=== PATIENT | male | born 1995 | race Caucasian/White ===

== ENCOUNTER 2024-04-05 13:22 | Emergency (ER) | payer OTHER ==
[2024-04-05 14:21] LABS: Absolute Basophils 0.1 K/uL (0-0.5); Absolute Eosinophils 0.5 K/uL (0-0.5); Absolute Lymphocytes (CBC) 1.3 K/uL (0.7-4.9); Absolute Monocytes 0.4 K/uL (0.1-1.3); Absolute Neutrophil 2.8 K/uL (1.8-8.0); Basophils % 1.1 % (0-1.3); Eosinophils % 9.4 % (0-4.4); Hematocrit 43.8 % (39.6-49.0); MCH 30.4 pg (27.0-35.0); MCHC 34.3 g/dL (32.0-36.0); MCV 88.6 fL (80-100); MPV 8.1 fL (7.6-11.3); Monocytes % 7.4 % (3.3-12.3); Neutrophils % 56.1 % (41.7-73.7); Platelets 295 thou/uL (152-406); RBC Red Blood Cell Count 4.94 M/uL (4.33-5.43); Red Cell Distribution Width 13.3 % (12.1-15.2)
[2024-04-05 14:35] LABS: PT Prothrombin Time 11.6 SECONDS (9.4-12.5); PTT, Activated Partial Thromb 39.3 SECONDS (24.3-36.9); Protime INR 1.11
[2024-04-05 14:45] LABS: ALT/SGPT 17 U/L (16-61); AST/SGOT 11 U/L (15-37); Albumin 4.2 g/dL (3.4-5.0); Alkaline Phosphatase 71 U/L (45-117); Anion Gap 10.3 mEq/L (5.0-15.0); BUN Blood Urea Nitrogen 14 mg/dL (7-18); Bicarbonate 24 mEq/L (21-32); Bilirubin Direct 0.2 mg/dL (0-0.2); Bilirubin Indirect, Calculated 0.4 mg/dL (0.2-0.8); Bilirubin Total 0.6 mg/dL (0.2-1.0); Globulin 4.2 g/dL (2.3-3.5); Glomerular Filtration Rate 119 ml/min (=/>90); Glucose Level 86 mg/dL (74-106); Potassium 4.3 mEq/L (3.5-5.1); Protein, Total 8.4 g/dL (6.4-8.2); Sodium Level 137 mEq/L (136-145)
[2024-04-05 14:46] LABS: Specific Gravity < 1.005 (1.005-1.030); Urine Bilirubin NEGATIVE (Negative); Urine Blood Negative (Negative); Urine Clarity Clear (Clear); Urine Color Colorless (Yellow); Urine Glucose NEGATIVE (Negative); Urine Ketones NEGATIVE (Negative); Urine Microscopic Reflex YN NO UMIC; Urine Nitrite NEGATIVE (Negative); Urine Protein NEGATIVE (Negative); Urine Urobilinogen Normal (Normal); Urine pH 6.5 (5.0-7.0)
[2024-04-05 14:56] LABS: Barbiturates NEGATIVE (NEGATIVE); Benzodiazepines POSITIVE (NEGATIVE); Cocaine POSITIVE (NEGATIVE); METHAMPHETAM NEGATIVE (NEGATIVE); Methadone NEGATIVE (NEGATIVE); Opiates NEGATIVE (NEGATIVE); Phencyclidine NEGATIVE (NEGATIVE); THC Cannibis POSITIVE (NEGATIVE)
[2024-04-05] MEDS ORDERED: DIPHENHYDRAMINE 50 MG/ML VIAL ONE (15:14)
[2024-04-05] MEDS ORDERED: METOCLOPRAMIDE 10 MG/2mL INJ ONE (15:14)
[2024-04-05] MEDS ORDERED: NA CHLORIDE 0.9% 1,000 ML ONE (15:15)
--- NOTE | 2024-04-05 15:40 | EDPHYS ---
Physician Documentation [facility] Name: Leobardo Alexander Age: 29 yrs Sex: Male : 1995 Arrival Date: 04/05/2024 Time: 13:22 Bed 11 Private MD: ED Physician Bert Trammell HPI: 04/05 14:05 This 29 yrs old Male presents to ER via Ambulatory with complaints of Withdrawals, cp Medication Refill. 14:05 The patient presents to the emergency department with anxiety, reported medication cp withdrawals after prescribed Suboxone being stolen 2 days ago. 14:05 Past psychiatric history: Prior diagnosis: addiction history. Associated signs and cp symptoms: Pertinent positives; anxiety, substance abuse, agitation, Pertinent negatives: abdominal pain, chest pain, delusions, fever, hallucinations, homicidal ideation, suicide ideation. Severity of symptoms: in the emergency department the symptoms are unchanged despite home interventions. Historical: - Allergies: 13:58 No Known Allergies; cm10 - Home Meds: 13:58 Suboxone 8-2 mg sublingual Film [Active]; cm10 - PMHx: 14:01 Drug Abuse; Cerebrovascular accident; cm10 - PSHx: 13:58 None; cm10 - Immunization history:: Adult Immunizations up to date. - Infectious Disease History:: Denies. - Social history:: Smoking status: Reported history of juuling and/or vaping. ROS: 14:10 Constitutional: Negative for fever, poor PO intake, cp 14:10 Cardiovascular: Negative for chest pain, cp 14:10 Respiratory: Negative for cough, shortness of breath, wheezing, 14:10 Abdomen/GI: Negative for abdominal pain, vomiting, diarrhea, constipation, 14:10 Neuro: Negative for altered mental status, 14:10 Psych: Positive for drug dependence, Negative for auditory hallucinations, visual hallucinations, homicidal ideation, suicide gesture, suicidal ideation, 14:10 All other systems are negative, Exam: 14:15 Constitutional: The patient appears in no acute distress, alert, awake, cp non-diaphoretic, non-toxic, well developed, well nourished, agitated, anxious, uncomfortable, 14:15 Head/Face: Normocephalic, atraumatic. cp 14:15 Eyes: Periorbital structures: appear normal, Conjunctiva: normal, no exudate, no injection, Sclera: no appreciated abnormality, Lids and lashes: appear normal, bilaterally, 14:15 ENT: External ear(s): are unremarkable, Nose: is normal, Mouth: Lips: moist, Oral mucosa: moist, Posterior pharynx: Airway: no evidence of obstruction, patent, 14:15 Neck: ROM/movement: is normal, is supple, without pain, no range of motions limitations, no meningismus, no nuchal rigidity, 14:15 Chest/axilla: Inspection: normal, 14:15 Cardiovascular: Rate: tachycardic, Rhythm: regular, Edema: is not appreciated, JVD: is not appreciated, 14:15 Respiratory: the patient does not display signs of respiratory distress, Respirations: normal, no use of accessory muscles, no retractions, labored breathing, is not present, Breath sounds: are clear throughout, no decreased breath sounds, no stridor, no wheezing, 14:15 Abdomen/GI: Inspection: abdomen appears normal, Palpation: abdomen is soft and non-tender, in all quadrants, 14:15 Neuro: Orientation: to person, place \T\ time. Mentation: is normal, Cerebellar function: is grossly normal, Motor: moves all fours, strength is normal, Sensation: no obvious gross deficits, Gait: is steady, 14:47 ECG was reviewed by the Attending Physician. Vital Signs: 13:59 BP 120 / 82; Pulse 100; Resp 18; Temp 98.3(O); Pulse Ox 100% on R/A; Weight 63.5 kg; cm10 Height 5 ft. 6 in. ; Pain 0/10; 15:45 BP 136 / 84; Pulse 91; Resp 18; Pulse Ox 100% on R/A; ld1 13:59 Body Mass Index 22.60 (63.50 kg, 167.64 cm) cm10 13:59 Pain Scale: Adult cm10 MDM: 14:02 Medical Screening Exam initiated cp 14:30 Differential diagnosis: drug withdrawal. acute psychotic break, depression, psychosis cp secondary to non-compliance. 15:40 Data reviewed: vital signs, nurses notes, lab test result(s), EKG, and as a result, I will discharge patient. 15:40 I considered the following discharge prescriptions or medication management in the emergency department Medications were administered in the Emergency Department. See MAR. Independent interpretation of the following test(s) in the Emergency Department EKG: See my EKG interpretation above. Counseling: I had a detailed discussion with the patient and/or guardian regarding the historical points, exam findings, and any diagnostic results supporting the discharge/admit diagnosis, lab results, the need for outpatient follow up, a psychiatrist, to return to the emergency department if symptoms worsen or persist or if there are any questions or concerns that arise at home. Response to treatment: the patient's symptoms have markedly improved after treatment, and as a result, I will discharge patient. 04/05 14:02 Order name: Acetaminophen; Complete Time: 14:59 04/05 14:59 Interpretation: Reviewed. 04/05 14:02 Order name: Basic Metabolic Panel; Complete Time: 14:59 04/05 14:02 Order name: CBC with Diff; Complete Time: 14:59 04/05 14:59 Interpretation: Normal except: EOSINOPHIL % 9.4. 04/05 14:02 Order name: ETOH Level; Complete Time: 14:59 04/05 14:59 Interpretation: Reviewed. 04/05 14:02 Order name: Hepatic Function; Complete Time: 14:59 04/05 15:00 Interpretation: Normal except: AST 11; TP 8.4; GLOB 4.2; A/G 1.0. 04/05 14:02 Order name: PT-INR; Complete Time: 14:59 cp 04/05 14:02 Order name: Ptt, Activated; Complete Time: 14:59 04/05 15:13 Interpretation: Reviewed. 04/05 14:02 Order name: Salicylate; Complete Time: 14:59 04/05 14:02 Order name: Urinalysis w/ reflexes; Complete Time: 14:59 04/05 14:02 Order name: Urine Drug Screen; Complete Time: 14:59 04/05 15:00 Interpretation: Normal except: BZO POSITIVE; SHANNON POSITIVE; THC POSITIVE. 04/05 14:02 Order name: EKG - Nurse/Tech; Complete Time: 14:46 04/05 14:02 Order name: IV Saline Lock; Complete Time: 14:16 04/05 14:02 Order name: Labs collected and sent; Complete Time: 14:16 04/05 14:02 Order name: Suicide Screening ([place]); Complete Time: 14:38 cp EC:47 Rate is 87 beats/min. Rhythm is regular. NH interval is normal. QRS interval is normal. cp QT interval is normal. Interpreted by me. Reviewed by me. Administered Medications: 14:38 Not Given (pt refused. STEWART Mcwilliams notified ): ativan1 mg IVP once ss 15:28 Drug: NS 0.9% IV 1000 ml IV at 1000 ml once; to be given as a bolus over 60 minutes ld1 Route: IV; Rate: 1000 ml; Site: right antecubital; 15:28 Drug: metoCLOPramide IVP 10 mg IVP once; over 1 to 2 minutes Route: IVP; Site: right ld1 antecubital; 15:28 Drug: diphenhydrAMINE IVP 25 mg IVP once Route: IVP; Site: right antecubital; ld1 Disposition: 16:06 Co-signature as Attending Physician, Bert Trammell MD I reviewed the patient's care rn provided by the Advanced Practice Provider and agree with the diagnosis and treatment plan. 04/06 14:06 Chart complete. cp Disposition Summary: 04/05/24 15:40 Discharge Ordered Notes: Location: Home cp Problem: new cp Symptoms: have improved cp Condition: Stable cp Diagnosis - Sedative, hypnotic or anxiolytic use, unspecified with withdrawal, unspecified cp Followup: cp - With: Private Physician - When: 2 - 3 days - Reason: Recheck today's complaints Discharge Instructions: - Discharge Summary Sheet cp - Opioid Withdrawal cp - Opioid Withdrawal Treatment cp Forms: - Medication Reconciliation Form cp - Antibiotic Education cp - Prescription Opioid Use cp - Patient Portal Instructions cp - Leadership Thank You Letter cp Prescriptions: - Hydroxyzine HCl 25 mg Oral tablet - take 1 tablet ORAL route every 6 hours As needed; 20 tablet; Refills: 0, cp Product Selection Permitted Signatures: Dispatcher [employer] EDBert Majano MD MD rn Page, Corey, PA PA cp Magnolia Pineda RN RN ld1 Radha Blair RN RN cm10 Jeaneth Sigala RN ss Corrections: (The following items were deleted from the chart) 04/05 14:03 14:03 ACETAMINOPHEN+C.LAB.BRZ ordered. EDMS EDMS 14:03 14:03 BASIC METABOLIC PANEL+C.LAB.BRZ ordered. EDMS EDMS 14:03 14:03 CBC+H.LAB.BRZ ordered. EDMS EDMS 14:03 14:03 ETHANOL+C.LAB.BRZ ordered. EDMS EDMS 14:03 14:03 HEPATIC FUNCTION+C.LAB.BRZ ordered. EDMS EDMS 14:03 14:03 PROTIME (+INR)+COAG.LAB.BRZ ordered. EDMS EDMS 14:03 14:03 PTT, ACTIVATED+COAG.LAB.BRZ ordered. EDMS EDMS 14:03 14:03 SALICYLATE+C.LAB.BRZ ordered. EDMS EDMS 14:03 14:03 Urinalysis+U.LAB.BRZ ordered. EDMS EDMS 14:03 14:03 URINE DRUG SCREEN+UC.LAB.BRZ ordered. EDMS EDMS
--- NOTE | 2024-04-05 15:40 | ER ---
Nurse's Notes [facility] Name: Leobardo Alexander Age: 29 yrs Sex: Male : 1995 Arrival Date: 04/05/2024 Time: 13:22 Bed 11 Private MD: Diagnosis: Sedative, hypnotic or anxiolytic use, unspecified with withdrawal, unspecified Presentation: 04/05 13:59 Chief complaint: Patient states: Has been out of Suboxone for 2 days and needs the cm10 prescription refilled due to it being stolen. Coronavirus screen: Client denies travel out of the [place] in the last 14 days. Ebola Screen: Patient denies travel to an Ebola-affected area in the 21 days before illness onset. Initial Sepsis Screen: Does the patient meet any 2 criteria? HR > 90 bpm. Does the patient have a suspected source of infection? No. Patient's initial sepsis screen is negative. Risk Assessment: Do you want to hurt yourself or someone else? Patient reports no desire to harm self or others. Onset of symptoms was April 05, 2024. 13:59 Method Of Arrival: Ambulatory cm10 13:59 Acuity: MANUEL 4 cm10 Triage Assessment: 14:00 General: Appears in no apparent distress. uncomfortable, Behavior is agitated. Neuro: cm10 No deficits noted. Level of Consciousness is awake, alert, obeys commands, Oriented to person, place, time, situation, Appropriate for age. Respiratory: No deficits noted. Airway is patent Respiratory effort is even, unlabored, Respiratory pattern is regular, symmetrical. Historical: - Allergies: 13:58 No Known Allergies; cm10 - Home Meds: 13:58 Suboxone 8-2 mg sublingual Film [Active]; cm10 - PMHx: 14:01 Drug Abuse; Cerebrovascular accident; cm10 - PSHx: 13:58 None; cm10 - Immunization history:: Adult Immunizations up to date. - Infectious Disease History:: Denies. - Social history:: Smoking status: Reported history of juuling and/or vaping. Screenin:41 Abuse screen: Denies threats or abuse. Denies injuries from another. Nutritional ss screening: No deficits noted. Tuberculosis screening: Never had TB. 15:45 [facility] ED Fall Risk Assessment (Adult) History of falling in the last 3 months, ld1 including since admission No falls in past 3 months (0 pts) Confusion or Disorientation No (0 pts) Intoxicated or Sedated No (0 pts) Impaired Gait No (0 pts) Mobility Assist Device Used No (0 pt) Altered Elimination No (0 pt) Score/Fall Risk Level 0 - 2 = Low Risk Oriented to surroundings, Maintained a safe environment, Educated pt \\T\\ family on fall prevention, incl call for assistance when getting out of bed, Assessed \\T\\ reinforced patient's understanding of fall precautions, Provided non-skid footwear, Hourly rounding (assess needs \\T\\ fall precautionary measures) done, Used ambulatory aids as needed (educated on \\T\\ assisted with), Used gait belt as appropriate. Assessment: 14:38 Reassessment: Denies HI/ SI at this time. Pt refused Ativan and is asking to have his ss dose of Suboxone. Jean Carrillo notified. General: Appears uncomfortable, Behavior is calm, cooperative. Neuro: Level of Consciousness is awake, alert, obeys commands, Oriented to person, place, time, situation, Speech is normal. Respiratory: Airway is patent Respiratory effort is even, unlabored, Respiratory pattern is regular, symmetrical. EENT: Oral mucosa is moist. Derm: Skin is intact, is healthy with good turgor, Skin is pink, warm \\T\\ dry. normal. 15:39 Reassessment: Pt requesting to leave now - told STEWART Mcwilliams that he was leaving ld1 because "you can't give me what I want." Pt states to this RN "I am leaving with this IV in my arm because I am going to come back as an overdose." Removed IV immediately and educate patient that we could help with symptoms with medicaton. Pt angry and stated "I am leaving right now to go do dope.". Vital Signs: 13:59 BP 120 / 82; Pulse 100; Resp 18; Temp 98.3(O); Pulse Ox 100% on R/A; Weight 63.5 kg; cm10 Height 5 ft. 6 in. ; Pain 0/10; 15:45 BP 136 / 84; Pulse 91; Resp 18; Pulse Ox 100% on R/A; ld1 13:59 Body Mass Index 22.60 (63.50 kg, 167.64 cm) cm10 13:59 Pain Scale: Adult cm10 ED Course: 13:24 Patient arrived in ED. mr 13:27 Jean Carrillo PA is PHCP. cp 13:33 Jean Carrillo PA is PHCP. cp 13:33 Bert Trammell MD is Attending Physician. cp 14:00 Triage completed. cm10 14:00 Arm band placed on left wrist. Patient placed in waiting room. cm10 14:16 Acetaminophen Sent. bc6 14:16 Basic Metabolic Panel Sent. bc6 14:16 CBC with Diff Sent. bc6 14:16 ETOH Level Sent. bc6 14:16 Hepatic Function Sent. bc6 14:16 PT-INR Sent. bc6 14:16 Ptt, Activated Sent. bc6 14:16 Salicylate Sent. bc6 14:16 Initial lab(s) drawn, by nm, sent to lab. Inserted saline lock: 20 gauge in right bc6 antecubital area, using aseptic technique. Blood collected. Flushed with 10 mL NS. 14:46 EKG done, by ED staff, reviewed by Jean WILLIAM. 6 15:05 Magnolia Pineda, RN is Primary Nurse. ld1 15:46 Patient has correct armband on for positive identification. Bed in low position. Call ld1 light in reach. Side rails up X2. Pulse ox on. NIBP on. Door closed. Noise minimized. Warm blanket given. 15:46 No provider procedures requiring assistance completed. IV discontinued, intact, ld1 bleeding controlled, No redness/swelling at site. Administered Medications: 14:38 Not Given (pt refused. STEWART Mcwilliams notified ): ativan1 mg IVP once ss 15:28 Drug: NS 0.9% IV 1000 ml IV at 1000 ml once; to be given as a bolus over 60 minutes ld1 Route: IV; Rate: 1000 ml; Site: right antecubital; 15:28 Drug: metoCLOPramide IVP 10 mg IVP once; over 1 to 2 minutes Route: IVP; Site: right ld1 antecubital; 15:28 Drug: diphenhydrAMINE IVP 25 mg IVP once Route: IVP; Site: right antecubital; ld1 Medication: 14:38 VIS not applicable for this client. ss Outcome: 15:40 Discharge ordered by . cp 15:56 Patient left the ED. ld1 Signatures: Keshia Marino, Reg Reg mr Jeaneth Sigala, RN RN ss Jean Carrillo PA PA cp Sims, Lauren, RN RN ld1 Rosie Cheung [facility] Radha Blair RN RN cm10
[2024-04-05 16:22] VITALS: TEMP 98.3; O2SAT 100
[2024-04-05 16:28] VITALS: BP 136/84
--- NOTE | 2024-04-08 13:02 | EKG ---
Test Date: 2024-04-05 Test Time: 14:44:29 Jewelry Mold Maker: JONO MEASUREMENT RESULTS: Intervals: Rate: 87 WY: 160 QRSD: 86 QT: 388 QTc: 466 Stella: P: 63 WY: 160 QRS: 82 T: 50 INTERPRETIVE STATEMENTS: Normal sinus rhythm Normal ECG No previous ECG available for comparison Electronically Signed On 04-08-24 12:59:10 DIET CONSULTANT by Melvin Eller
== END 2024-04-05 15:56 | disposition home or self-care (01) ==
LOC: ER 13:22
DX: F13.939 Sedative, hypnotic or anxiolytic use, unspecified with withdrawal, unspecified (principal)
CPT/HCPCS: 85025; 80048; 36415; 85610; 80076; 85730; 81003; 80307; 96375; 96374; 99284; 80143; 80179; 82077; J2765; J1200; J7030; 93005